=== PATIENT | male | born 1975 | race Two or more races ===

== ENCOUNTER 2018-06-13 19:58 | Emergency (ER) | payer MEDICAID ==
[~2018-06-13] VITALS: Ht 165.1 cm; Wt 70.3 kg
[2018-06-13 20:09] VITALS: BP 122/71
--- NOTE | 2018-06-13 20:09 | NUR ---
ER Nurse Note: Pt came from home c/o right earache since a few days. Pt stated theres swelling and redness behind the ear. No drainage, skin intact, warm to touch, denies trauma. Pt denies difficulty swollowing. 8/10 throbbing pain. ERMD at pt side; will continue to montior.
--- NOTE | 2018-06-13 20:27 | Emergency Room Report ---
History of Present Illness General Chief Complaint: Earache Source: Patient Present Illness HPI 42 YO Male presents to the ED c/o 10/29 in severity progressive pain, swelling, and erythema of right side of the face just under and in front of the right ear lobe x 4 days. denies trauma or fall, denies external ear pain. denies changes in hearing, denies dental pain or recent procedures. pt. denies sore throat. palpation exacerbates pain. no modifying factors otherwise. Allergies: Coded Allergies: PENICILLINS (Verified Allergy, Unknown, 06/13/18) Patient History Past Medical History: see triage record Past Surgical History: none Pertinent Family History: none Immunizations: UTD Reviewed Nursing Documentation: PMH: Agreed; PSxH: Agreed Nursing Documentation-PMH Past Medical History: No Stated History Review of Systems All Other Systems: negative except mentioned in HPI Physical Exam Vital Signs Date Time Temp Pulse Resp B/P (MAP) Pulse Ox O2 Delivery O2 Flow Rate FiO2 06/13/18 20:01 99.3 90 18 122/71 97 Room Air Sp02 EP Interpretation: reviewed, normal General Appearance: alert, GCS 15, non-toxic, mild distress Head: normocephalic, atraumatic Eyes: bilateral eye normal inspection, bilateral eye PERRL ENT: hearing grossly normal, normal pharynx, normal voice, TMs + canals normal , uvula midline, other - Swelling, erythema, warmth, and tenderness to the preauricular area and posterior jaw line on the right side of face Neck: full range of motion, no meningismus Respiratory: lungs clear, normal breath sounds, speaking full sentences Cardiovascular #1: regular rate, rhythm Musculoskeletal: back normal, gait/station normal, normal range of motion, non- tender Neurologic: alert, oriented x3, responsive, motor strength/tone normal, sensory intact, speech normal, grossly normal Psychiatric: judgement/insight normal Skin: normal color, no rash, warm/dry, well hydrated Lymphatic: no adenopathy Medical Decision Making PA Attestation Dr. Patterson is my supervising Physician whom patient management has been discussed with. Diagnostic Impression: Primary Impression: Cellulitis and abscess of face ER Course 42 YO Male presents to the ED c/o 10/29 in severity progressive pain, swelling, and erythema of right side of the face just under and in front of the right ear lobe x 4 days. denies trauma or fall, denies external ear pain. denies changes in hearing, denies dental pain or recent procedures. pt. denies sore throat. palpation exacerbates pain. no modifying factors otherwise. Ddx considered but are not limited to cellulitis, OE, Mastoiditis, dental abscess, LAD Vital signs: are WNL, pt. is afebrile H&PE are most consistent with facial cellulitis ORDERS: none required at this time, the diagnosis is clinical ED INTERVENTIONS: Toradol IM DISCHARGE: At this time pt. is stable for d/c to home. Will provide printed patient care instructions, and any necessary prescriptions. Care plan and follow up instructions have been discussed with the patient prior to discharge. Last Vital Signs Date Time Temp Pulse Resp B/P (MAP) Pulse Ox O2 Delivery O2 Flow Rate FiO2 06/13/18 20:09 99.3 80 18 122/71 97 Room Air Disposition: HOME, SELF-CARE Condition: Stable Scripts Acetaminophen With Codeine (T#3) (TYLENOL #3 TAB*) Y Tab 1 TAB ORAL Q6H PRN for For Pain, #12 TAB Prov: Janine Novoa 06/13/18 Clindamycin Hcl (CLINDAMYCIN HCL) 300 Mg Capsule 300 MG ORAL FOUR TIMES A DAY for 7 Days, #28 CAP Prov: Janine Novoa 06/13/18 Patient Instructions: Cellulitis, [id number] Additional Instructions: Take medications as directed. Follow up with a Primary Care Provider in 3-5 days, even if your symptoms have resolved. --Please review list of primary care clinics, if you do not already have a primary care provider Return sooner to ED if new symptoms occur, or current symptoms become worse. Do not drink alcohol, drive, or operate heavy machinery while taking Tylenol #3 as this may cause drowsiness. - Please note that this Emergency Department Report was dictated using [employer] tester technology software, occasionally this can lead to erroneous entry secondary to interpretation by the dictation equipment. Janine Novoa Jun 13, 2018 20:27
[2018-06-13] MEDS ORDERED: ACETAMINOPHEN-1 EAC1 ORAL (20:29)
[2018-06-13] MEDS ORDERED: CLINDAMYCIN HC300 MG ORAL (20:29)
[2018-06-13] MEDS ORDERED: Ketorolac 30mg Inj IM ONE (20:30)
[2018-06-13 20:55] VITALS: BP 122/71
--- NOTE | 2018-06-13 20:55 | NUR ---
ER Nurse Note: Pt seen, treated, medically cleared for discharge by ERMD. Discharge instructions and prescriptions given with repeat verbalization by pt. Instructed pt to follow up with primary care physican within one week. Pt a&ox4, VSS, no signs of acute distress. ID band removed. Pt left with all belongings.
== END 2018-06-13 20:55 | disposition home or self-care (01) ==
LOC: EMR 20:30
DX: H60.11 Cellulitis of right external ear (principal); Z88.0 Allergy status to penicillin
CPT/HCPCS: 96372; 99283; J1885

== ENCOUNTER 2019-11-15 20:24 | Emergency (ER) | payer MEDICAID ==
[~2019-11-15] VITALS: Ht 165.1 cm; Wt 70.3 kg
[~2019-11-15 20:24] MED LIST: ACETAMINOPHEN-1 EAC1 ORAL; CLINDAMYCIN HC300 MG ORAL
[2019-11-15] MEDS ORDERED: HYDROcodone/Acetamin 5/325 tab ORAL ONE (22:15)
[2019-11-15 22:20] VITALS: BP 148/89
--- NOTE | 2019-11-15 23:03 | Emergency Room Report ---
History of Present Illness General Chief Complaint: Multiple Trauma/Fall Source: Patient Present Illness HPI Patient states he dropped a jackhammer on his right great toe today at work. He has pain at that location. He has no other injuries or complaints. 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 Patient History Past Medical History: none, see triage record Social History: Denies: smoking, alcohol use, drug use Reviewed Nursing Documentation: PMH: Agreed; PSxH: Agreed Nursing Documentation-PMH Past Medical History: No Stated History Review of Systems All Other Systems: negative except mentioned in HPI Physical Exam Vital Signs Date Time Temp Pulse Resp B/P (MAP) Pulse Ox O2 Delivery O2 Flow Rate FiO2 11/15/19 20:31 98.6 18 148/89 (108) 98 Room Air 11/15/19 22:20 89 Sp02 EP Interpretation: reviewed, normal General Appearance: no apparent distress, alert, GCS 15, non-toxic Head: normocephalic, atraumatic ENT: hearing grossly normal, no angioedema, normal voice Respiratory: no respiratory distress, no retraction, no accessory muscle use, speaking full sentences Rectal: deferred Musculoskeletal: normal range of motion, gait/station normal, tender - TTP with ecchymosis over the mid R. great toe Neurologic: alert, motor strength/tone normal, oriented x3, sensory intact, responsive, speech normal Psychiatric: judgement/insight normal, memory normal, mood/affect normal, no suicidal/homicidal ideation Skin: other - See above in MSK exam Medical Decision Making Diagnostic Impression: Primary Impression: Fracture of phalanx of great toe ER Course This patient has a comminuted fracture of the proximal phalanx of the great toe. The toe was marina taped and the patient was placed in a hard soled shoe. The patient was instructed that he would need to follow-up closely with an litigation specialist. Especially given that this is the great toe. He was also given crutches. He was given close return precautions and follow-up instructions. Other X-Ray Diagnostic Results Other X-Ray Diagnostic Results : X-Ray ordered: R. foot Indication: Pain EP Interpretation: Yes Interpretation: other - Comminuted fracture of the proximal great toe Impression: Other - See above. Electronically Signed by: Lia Markham DO Last Vital Signs Date Time Temp Pulse Resp B/P (MAP) Pulse Ox O2 Delivery O2 Flow Rate FiO2 11/15/19 22:20 98.6 90 18 148/89 98 Room Air Status: improved Disposition: HOME, SELF-CARE Condition: Improved Referrals: NOT CHOSEN IPA/,REFERRING (PCP) Lia Markham DO Nov 15, 2019 23:03
[2019-11-15] MEDS ORDERED: NORCO 5-325 TA1 EAC1 ORAL (23:06)
[2019-11-15] MEDS ORDERED: IBUPROFEN800 MG ORAL (23:06)
[2019-11-16 01:29] VITALS: BP 134/75
--- NOTE | 2019-11-16 13:51 | Diagnostic Imaging Report ---
Indication: Pain, trauma Technique: 3 views left foot Comparison: none Findings: There is a comminuted transverse fracture of the midshaft first proximal phalanx. This is displaced by about 6 mm superiorly and medially. No other acute fractures. No dislocations. The joint spaces are preserved Impression: Positive for first proximal phalangeal fracture
== END 2019-11-15 23:30 | disposition home or self-care (01) ==
LOC: EMR 20:53
DX: S92.411A Displaced fracture of proximal phalanx of right great toe, initial encounter for closed fracture (principal); W20.8XXA Other cause of strike by thrown, projected or falling object, initial encounter; Y92.9 Unspecified place or not applicable; Y99.0 Civilian activity done for income or pay; Z88.0 Allergy status to penicillin
CPT/HCPCS: 73630; Z7502; 99283

== ENCOUNTER 2020-05-03 21:39 | Emergency (ER) | payer MEDICAID ==
[~2020-05-03] VITALS: Ht 167.6 cm; Wt 70.3 kg
[~2020-05-03 21:39] MED LIST changes: +BENADRYL25 MG PO; +BENADRYL50 MG ORAL; +BENADRYL50 MG PO; +IBUPROFEN800 MG ORAL; +NO HOME MEDS; +NORCO 5-325 TA1 EAC1 ORAL; +PEPCID20 MG PO; +PREDNISONE50 MG PO; +PROTONIX20 MG PO; +ZANTAC150 MG ORAL
--- NOTE | 2020-05-03 22:30 | NUR ---
ED Nurse Note: Recieved pt walk in from home, here with c/o redness to outer corner of right eye x 1 day, states awakened with "blood clot noted", denies injury to area or any visual disturbances or changes, pt is ambulatory, no cp, no sob, fevers or any other complaints.
--- NOTE | 2020-05-03 22:32 | Emergency Room Report ---
History of Present Illness General Chief Complaint: Eye Problems Source: Patient Present Illness HPI Disclaimer: Please note that this report is being documented using Glio technology. This can lead to erroneous entry secondary to incorrect interpretation by the dictating instrument. HPI: Is a 44-year-old male presenting for evaluation of eye redness. He woke this morning with a red color to the lateral portion of the right eye. Denies injury. Denies foreign body sensation. Denies pain, swelling, headache, increased lacrimation or changes in vision. 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 Does not take anticoagulants or other blood thinners. No other complaints at this time. Does not wear contact lenses. 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 EOMI. PERRLA. Some conjunctival hemorrhage over the 9 o'clock position right eye. No chemosis, no lid edema. No lacrimation. No injection of the conjunctiva otherwise. No hyphema, no hypopyon. Visual ackerman are full. Vision grossly intact. Ocular pressure is 18 mmHg OD, 18 mmHg OS. No fluorescein uptake. No ulcers, no abrasions, no dendrites. Resp: Normal work of breathing Skin: Intact. No abrasions, laceration or rash over the exposed skin MSK: Normal tone and bulk. Moving all extremities. No obvious deformity. Neuro: Awake and alert. Mentating appropriately Medical Decision Making Diagnostic Impression: Primary Impression: Subconjunctival hemorrhage of right eye ER Course Is a 44-year-old male presenting with right eye redness. Most consistent conjunctival hemorrhage. No evidence of acute angle-closure glaucoma, orbital cellulitis, other infection, trauma or abrasion or other pathology. Discussed routine follow-up. Instructed to return new or worsening symptoms. Understands and agrees with this treatment plan. Last Vital Signs Date Time Temp Pulse Resp B/P (MAP) Pulse Ox O2 Delivery O2 Flow Rate FiO2 05/03/20 22:10 97.9 74 16 115/76 (89) 95 Room Air Disposition: HOME, SELF-CARE Condition: Stable Referrals: NOT CHOSEN IPA/,REFERRING (PCP) [facility] Patient Instructions: Subconjunctival Hemorrhage Additional Instructions: Please follow-up with your primary care doctor in the next 1 to 3 days to discuss this emergency department visit and for reevaluation. If you have any new or worsening symptoms please return to the emergency department for reevaluation. Please note that this report is being documented using Glio technology. This can lead to erroneous entry secondary to incorrect interpretation by the dictating instrument. Moe Hunter MD May 03, 2020 22:32
[2020-05-03 23:20] VITALS: BP 124/77
[2020-05-03 23:30] VITALS: BP 124/77
--- NOTE | 2020-05-03 23:30 | NUR ---
ER DISCHARGE NOTE: Patient is cleared to be discharged per ERMD, pt is aox4, on room air, with stable vital signs. pt was given dc and prescription instructions, pt was able to verbalize understanding, pt id band removed without complications. pt is able to ambulate with steady gait. pt took all belongings.
== END 2020-05-03 23:30 | disposition home or self-care (01) ==
LOC: EMR 22:10
DX: H11.31 Conjunctival hemorrhage, right eye (principal); Z88.0 Allergy status to penicillin
CPT/HCPCS: 99282